=== PATIENT | female | born 1995 | race Caucasian/White ===

== ENCOUNTER 2017-03-13 14:23 | Emergency (ER) | payer OTHER ==
[~2017-03-13] VITALS: Ht 165.1 cm; Wt 61.2 kg
[~2017-03-13 14:23] MED LIST: BIRTH CONTROL1 EAC1 PO; CIPRO250 MG PO; KEFLEX500 MG PO; MOTRIN400 MG PO; ZOFRAN4 MG PO
== END 2017-03-13 15:48 | disposition home or self-care (01) ==
LOC: ED 14:23
DX: S60.221A Contusion of right hand, initial encounter (principal); Z79.899 Other long term (current) drug therapy; Z88.2 Allergy status to sulfonamides; W22.8XXA Striking against or struck by other objects, initial encounter; Y93.89 Activity, other specified; Y92.69 Other specified industrial and construction area as the place of occurrence of the external cause; Y99.9 Unspecified external cause status

== ENCOUNTER 2017-10-27 14:23 | Emergency (ER) | payer OTHER ==
[~2017-10-27] VITALS: Ht 165.1 cm; Wt 59.0 kg
[2017-10-27] MEDS ORDERED: NAPROSYN500 MG PO (14:25)
== END 2017-10-27 14:55 | disposition home or self-care (01) ==
LOC: ED 14:23
DX: S93.401A Sprain of unspecified ligament of right ankle, initial encounter (principal); Z79.899 Other long term (current) drug therapy; Z88.2 Allergy status to sulfonamides; X50.1XXA Overexertion from prolonged static or awkward postures, initial encounter; Y93.89 Activity, other specified; Y92.89 Other specified places as the place of occurrence of the external cause; Y99.9 Unspecified external cause status

== ENCOUNTER 2025-05-17 17:25 | Emergency (ER) | payer OTHER ==
[~2025-05-17] VITALS: Wt 68.0 kg
[~2025-05-17 17:25] MED LIST changes: +NAPROSYN500 MG PO
[2025-05-17] MEDS ORDERED: CITALOPRAM20 MG PO (17:33)
[2025-05-17] MEDS ORDERED: Acetaminophen/Hydrocodone 5 MG/325 MG TABLET PO ONE (17:50)
== END 2025-05-17 18:30 | disposition home or self-care (01) ==
LOC: ED 17:25
DX: S63.501A Unspecified sprain of right wrist, initial encounter (principal); Z88.2 Allergy status to sulfonamides; Z79.899 Other long term (current) drug therapy; Z98.890 Other specified postprocedural states; W00.0XXA Fall on same level due to ice and snow, initial encounter; Y93.89 Activity, other specified; Y92.89 Other specified places as the place of occurrence of the external cause; Y99.8 Other external cause status